=== PATIENT | female | born 1970 | race Caucasian/White ===

== ENCOUNTER 2018-07-20 06:29 | Day surgery (SDC) | payer BC ==
--- OUTSIDE RECORDS SUMMARY | 2018-07-20 06:33 | XMS REPORT ---
:1970 [facility] Address [address] [place] [address] Dr. Vann [address] [place] [id number] Care Team Providers Name Role Phone Unavailable Unavailable Unavailable Problems This patient has no known problems. Allergies, Adverse Reactions, Alerts This patient has no known allergies or adverse reactions. Medications This patient has no known medications.
[2018-07-20] MEDS ORDERED: Ringers Lactate 1,000 ML IV ONE (06:47)
[2018-07-20] MEDS ORDERED: LIDOCAINE 1% MPF 5 ML VIAL ONE (06:51)
[2018-07-20 07:05] LABS: Specific Gravity 1.015 (1.005-1.030)
[2018-07-20] MEDS ORDERED: FENTANYL CITR 100 MCG/2 ML ONE (07:18)
[2018-07-20] MEDS ORDERED: PROPOFOL 200 MG/20 ML VIAL IV ONE (07:18)
[2018-07-20] MEDS ORDERED: LIDOCAINE 2% MPF 5 ML VIAL ONE (07:19)
[2018-07-20] MEDS ORDERED: MIDAZOLAM HCL 2 MG/2 ML INJ ONE (07:19)
[2018-07-20] MEDS ORDERED: ONDANSETRON 4 MG/2 ML VIAL ONE ×2 (07:20→09:18)
[2018-07-20] MEDS ORDERED: LIDOCAINE 1.5% W/EPI AMP 5 ML ONE (07:22)
[2018-07-20] MEDS ORDERED: NA CHLORIDE 0.9% 1,000 ML ONE (07:23)
[2018-07-20] MEDS ORDERED: EPHEDRINE SULF 50 MG/ML VIAL ONE (08:22)
[2018-07-20] MEDS ORDERED: IBUPROFEN 200 MG TAB PO PRN (08:30)
--- NOTE | 2018-07-20 08:36 | P.BOP ---
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
[2018-07-20] MEDS: MEPERIDINE HCL 25 MG/0.5 ML ONE ×2 (08:38→08:43)
[2018-07-20] MEDS ORDERED: PROMETHAZINE 25 MG/ML VIAL ONE (08:55)
[2018-07-20] MEDS ORDERED: MEPERIDINE HCL 25 MG/0.5 ML ONE (09:06)
[2018-07-20] MEDS ORDERED: IBUPROFEN 200 MG TAB PO ONE (10:01)
--- NOTE | 2018-07-20 20:24 | OP ---
Date of Procedure: 07/20/2018 Surgeon: Denise Ruiz MD Preoperative Diagnoses: 1.Menorrhagia. 2.Endometrial polyps. Postoperative Diagnoses: 1.Menorrhagia. 2.Endometrial polyps. Procedures Performed: 1.Hysteroscopy. 2.Polypectomy x2 using Symphion device. 3.Dilation and curettage. Anesthesia: General. Specimens: Polyps and endometrial curettings all in 1 specimen cup. Complications: No complications. Drains: No drains. Condition: Stable. Estimated Blood Loss: Minimal. Normal saline for distention. No fluid deficit loss. The mean arterial pressure was set at about a little over 70 and her resecting pressures were at 80 m mHg. Description Of Procedure: After informed consent was verified, the patient was taken back to the OR. She was placed in a supine fashion on the operating table. After general anesthesia was given, she was placed in a dorsal lithotomy position. Pelvic exam was performed. Uterus was found to be about 8 weeks size. She has a stage II anterior wall and apical prolapse . Prep x3 with Betadine was done. Anterior lip grasped with 2 Allis clamps. Diagnostic SlimLine hyste roscope used to enter the cervical canal into the uterine cavity. Polyps were found in the office we re noted both at each of the tubal ostia just inside of them and the thickened endometrium on the ant erior wall. The scope was pulled out. The resectoscope . The 0 degree scope was used to introduce after priming the device and we went down to perform the polypectomy and the anterior wall that was thickened was all curetted with the device. The specimens were sent for permanent pathology . EBL was minimal. All the instruments were removed. Further curetting was performed with a #2 cur ette. After all the instruments were removed instrument, needle, and sponge counts were done and wer e correct at the end of the case. The patient tolerated the procedure well. Every time the device w as turned on with the bipolar going through for resection, there was no arrhythmia that was noted on the patient's continuous electronic EKG monitoring. However, there were no further arrhythmias. The patient had normal sinus rhythm, not tachycardic and did well at the end of the procedure. She was recovered from anesthesia and taken to PACU in stable condition. EBL minimal. She will follow up wi th me in 1 week. GIRISH/ADAN Voice ID: [id number] Report ID: [id number]
== END 2018-07-20 10:20 | disposition home or self-care (01) ==
LOC: OR 06:29
PROVIDERS: ATTEND Obstetrics & Gynecology
PROC: 0UDB7ZX Extraction of Endometrium, Via Natural or Artificial Opening, Diagnostic (ICD-10-PCS; 2018-07-20)
PROC: 0UJD8ZZ Inspection of Uterus and Cervix, Via Natural or Artificial Opening Endoscopic (ICD-10-PCS; 2018-07-20)
PROC: 0UB97ZX Excision of Uterus, Via Natural or Artificial Opening, Diagnostic (ICD-10-PCS; principal; 2018-07-20 07:30)
DX: N92.0 Excessive and frequent menstruation with regular cycle (principal); N84.0 Polyp of corpus uteri; N85.02 Endometrial intraepithelial neoplasia [EIN]; N95.1 Menopausal and female climacteric states; E03.9 Hypothyroidism, unspecified; E78.00 Pure hypercholesterolemia, unspecified; E55.9 Vitamin D deficiency, unspecified
CPT/HCPCS: 81025; 88305; J2001; J2175; J2250; J2405; J2550; J2704; J3010; J7030

== ENCOUNTER 2018-08-25 08:46 | Day surgery (SDC) | payer BC ==
[2018-08-22 12:22] LABS: Urine Appearance CLEAR; Urine Bilirubin NEGATIVE (NEG); Urine Blood NEGATIVE (NEG); Urine Color YELLOW; Urine Glucose NEGATIVE (NEG); Urine Protein NEGATIVE (NEG); Urine Urobilinogen 0.2 mg/dL (0.2-1.0); Urine pH 5.5 (5.0-7.0)
[2018-08-22 12:25] LABS: Urine Microscopic Reflex ORDER UMIC
[2018-08-22 12:27] LABS: Absolute Monocytes 0.5 K/uL (0.1-1.3); Absolute Neutrophil 4.1 K/uL (1.8-8.0); Basophils % 0.7 % (0-1.3); Eosinophils % 6.2 % (0-4.4); Hematocrit 45.2 % (36.0-45.0); Lymphocytes % 27.9 % (15.3-44.8); RBC Red Blood Cell Count 4.86 M/uL (3.86-4.86)
[2018-08-22 12:39] LABS: Urine Bacteria NONE SEEN /HPF (<20); Urine Culture Reflex Order REFLEXED; Urine RBC <5 /HPF (NONE SEEN)
--- NOTE | 2018-08-22 15:17 | EKG ---
Test Date: 2018-08-22 Test Time: 10:16:02 Harp Repairer: MAGDALENO MEASUREMENT RESULTS: Intervals: Rate: 53 NH: 142 QRSD: 90 QT: 452 QTc: 424 [place]: P: 35 NH: 142 QRS: -14 T: 26 INTERPRETIVE STATEMENTS: Sinus bradycardia Cannot rule out Anterior infarct, age undetermined Abnormal ECG No previous ECG available for comparison Electronically Signed On 08-22-18 15:15:04 CDT by Darrell Ochoa
[~2018-08-25 08:46] MED LIST: CEFAZOLIN 3 GM in NA CHLORIDE 0.9% 100 ML IM SCH
--- OUTSIDE RECORDS SUMMARY | 2018-08-25 08:49 | XMS REPORT ---
:1970 [facility] Address [address] [place] [address] Dr. Vann [address] [place] [id number] Care Team Providers Name Role Phone Unavailable Unavailable Unavailable Problems This patient has no known problems. Allergies, Adverse Reactions, Alerts This patient has no known allergies or adverse reactions. Medications This patient has no known medications.
--- OUTSIDE RECORDS SUMMARY | 2018-08-25 08:59 | XMS REPORT ---
:1970 Author Organization [facility] Address [address] [place] [address] Dr. [address] [place] [id number] Care Team Providers Name Role Phone Unavailable Unavailable Unavailable Problems This patient has no known problems. Allergies, Adverse Reactions, Alerts This patient has no known allergies or adverse reactions. Medications This patient has no known medications.
[2018-08-25 09:14] LABS: Specific Gravity 1.015 (1.005-1.030)
[2018-08-25] MEDS ORDERED: CEFAZOLIN/SWI 1gm 0 GM/0 ML SYR ONE (09:15)
[2018-08-25] MEDS ORDERED: Ringers Lactate 1,000 ML IV ONE ×3 (09:15→15:14)
[2018-08-25] MEDS: CEFAZOLIN/SWI 2gm 0 GM/0 ML SYR ONE ×2 (10:16→11:09)
[2018-08-25] MEDS ORDERED: SCOPOLAMINE HYDROBROMIDE PATCH TD ONE (10:16)
[2018-08-25] MEDS ORDERED: FENTANYL CITR 250 MCG/5 ML ONE (10:53)
[2018-08-25] MEDS ORDERED: PROPOFOL 200 MG/20 ML VIAL IV ONE (10:53)
[2018-08-25] MEDS ORDERED: ROCURONIUM 50 MG/5 ML VIAL IV ONE ×2 (10:53→13:08)
[2018-08-25] MEDS ORDERED: LIDOCAINE 2% MPF 5 ML VIAL ONE ×2 (10:53→13:52)
[2018-08-25] MEDS ORDERED: GLYCOPYRROLATE 0.2 MG/ML SYR ONE (10:53)
[2018-08-25] MEDS ORDERED: MIDAZOLAM HCL 2 MG/2 ML INJ ONE (10:53)
[2018-08-25] MEDS ORDERED: ONDANSETRON 4 MG/2 ML VIAL ONE (10:54)
[2018-08-25] MEDS ORDERED: NEOSTIGMINE 1 MG/ML -10 ML VIAL ONE (10:54)
[2018-08-25] MEDS ORDERED: NA CHLORIDE 0.9% 1,000 ML ONE (11:09)
[2018-08-25] MEDS: Ringers Lactate 1,000 ML IV ONE ×2 (12:28→12:29)
[2018-08-25] MEDS ORDERED: FENTANYL CITR 100 MCG/2 ML ONE (13:10)
[2018-08-25] MEDS ORDERED: KETOROLAC 30 MG/ML INJ ONE (13:38)
[2018-08-25] MEDS: HYDROMORPHONE HCL 2 MG/ML inj ONE ×4 (14:15→14:44)
[2018-08-25] MEDS ORDERED: HYDROCODONE/APAP 5/325 MG TAB ONE ×2 (15:35→18:00)
[2018-08-25] MEDS ORDERED: PROMETHAZINE 25 MG/ML VIAL ONE (16:24)
--- NOTE | 2018-08-26 00:13 | OP ---
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 2.Uterine prolapse. Procedures Performed: 1.Total laparoscopic hysterectomy, bilateral salpingo-oophorectomy, pelvic washings. 2.Uterosacral ligament suspension, colpopexy, and cystoscopy. Anesthesia: General endotracheal. Estimated Blood Loss: Minimal. Specimens: Uterus, bilateral tubes and ovaries, and pelvic washings. Complications: No complications. Drains: No drains. Condition: Stable. Indications: The patient is a 48-year-old, presented to the office for a regular routine wellness ex am, found to have irregular periods which were infrequent and abnormal. On further evaluation, trans vaginal ultrasound was done. Endometrial lining appeared to be thickened excessively. On sampling, she was found to have atypia with endometrial hyperplasia. So, she was offered treatment with medica l options including oral progesterone high-dose or Mirena, then surgical options hysterectomy. Since the patient was premenopausal, she wanted to proceed with hysterectomy and so she was consented and brought to the OR. Description Of Procedure: After informed consent was verified, she was given 3 g of Ancef. Brought to the OR, placed in a supine fashion on the table. After general anesthesia was given, she was plac ed in a dorsal lithotomy position using Chavez stirrups. Arms were tucked by the side and, after prop er positioning was ensured, SCDs were started. Time-out done. Abdomen, vulva, vagina, and perineum were prepped and draped in a sterile fashion. Mayorga was placed to drain the bladder and attached to cysto tubing for retrograde filling. A large VCare was introduced into the uterus and fixed in place . This area was then draped. A 1 cm infraumbilical incision was made with a scalpel. The fascia wa s incised and tagged. Peritoneum was entered without any problems. S retractor was placed. Cristina introduced. Site of entry was checked and was unremarkable. Upper abdominal surface was unremarkabl e also. Gallbladder absent. Peritoneal surfaces and omental surfaces were unremarkable. The patien t is placed in Trendelenburg position. A 5 mm left lower quadrant and 10 mm suprapubic ports were pl aced under direct vision. The small bowel was tucked into the upper abdomen. The large bowel was re tracted superiorly with the help of a 3-0 Monocryl stitch, placed onto epiploica of the sigmoid and t hen pulled up through the left upper quadrant incision using the Pancho-Miguel Ángel needle. This was fo r retraction. The vaginal pelvic survey was done. Pelvic washings were performed. No abnormalities were found. S mall tiny uterine fibroid was found on the serosal surface towards the left. Both tubes appeared to have proximal hydrosalpinges. Ureters without any anatomical distortion and the same is bladder. Ut erine prolapse likely present. After LigaSure was opened up, the left mesosalpinx was taken down proximally. Then, utero-ovarian li gament and round ligament were all taken down. The anterior leaves of the broad ligament were dissec parvez all the way to the level of the right round ligament. Then, the loose connective tissue over the precervical fascia was all cleared up. Bladder retracted inferiorly. Posterior peritoneum on the l eft side taken down to the left uterosacral and the broad ligament was skeletonized along with the ve ssels from the opposite side. Further dissection was performed and, once both vessels were well visu alized, then the LigaSure was used to take down and bipolar basket tip were used to take down the ves sels first. Then, the cardinal ligaments were taken down circumferentially. Colpotomy was performed with a monopolar hook blade, and the specimen detached and pulled out through the vagina. The tube and ovary on the left side were dissected and removed free, and on the left side the tube and ovary w ere removed separately and pulled out all through. All specimens were pulled out through the suprapu bic trocar. Thorough irrigation and suction were performed. Simple 0 Vicryl sutures placed at both angles and three [id number] in the middle to close. There was the uterosacral detachment compl etely from the apex and so this was reattached and suspension with the help of 0 PDS starting at the distal uterosacral about the last 4 cm, and a continuous running suture was passed through the uteros acral ligament, posterior fascia, rectovaginal septum, and then anterior precervical fascia, and a st itch tied one on each side. There was no anatomical distortion of the ureter on both sides. Cystosc opy was performed with a 17-Urdu sheath, 30-degree lens, normal saline. Both ureteric orifices wer e well visualized. The left side had a strong jet of urine, however this was like a continuous flow. No evidence of any blood or obstruction. The entire bladder was well visualized and unremarkable, without any foreign bodies. Bladder was drained. Vaginal bulb was removed. Vagina was cleaned up. Umbilical and fascial incisions were closed with the help of 0 Vicryl in a [id number] fashion. Subcutaneous sutures placed to bring it together and simple 0 Vicryl stitch on the fascia at the supr apubic site as well. All incisions were closed with the help of interrupted 4-0 Vicryl. Instrument, needle, and sponge counts x3 were correct at the end of the case. The patient tolerated the procedu re well. She will follow up with me in 10 days. GIRISH/ADAN Voice ID: [id number] Report ID: [id number]
== END 2018-08-25 18:15 | disposition home or self-care (01) ==
LOC: OR 08:46
PROVIDERS: ATTEND Obstetrics & Gynecology
PROC: 0UT24ZZ Resection of Bilateral Ovaries, Percutaneous Endoscopic Approach (ICD-10-PCS; 2018-08-25)
PROC: 0UT74ZZ Resection of Bilateral Fallopian Tubes, Percutaneous Endoscopic Approach (ICD-10-PCS; 2018-08-25)
PROC: 0USG4ZZ Reposition Vagina, Percutaneous Endoscopic Approach (ICD-10-PCS; 2018-08-25)
PROC: 0UT94ZZ Resection of Uterus, Percutaneous Endoscopic Approach (ICD-10-PCS; principal; 2018-08-25 10:30)
DX: N81.4 Uterovaginal prolapse, unspecified (principal); N80.0 Endometriosis of uterus; N88.8 Other specified noninflammatory disorders of cervix uteri; N94.89 Other specified conditions associated with female genital organs and menstrual cycle; N70.11 Chronic salpingitis; N95.1 Menopausal and female climacteric states; E03.9 Hypothyroidism, unspecified; E78.00 Pure hypercholesterolemia, unspecified; Z79.899 Other long term (current) drug therapy
CPT/HCPCS: 36415; 81003; 81015; 81025; 85025; 86850; 86900; 86901; 87086; 87088; 88108; 88305; 88307; 88309; 93005; J0690; J1170; J2250; J2405; J2550; J2704; J2710; J3010; J7030

== ENCOUNTER 2018-09-24 12:08 | Emergency (ER) | payer BC ==
--- OUTSIDE RECORDS SUMMARY | 2018-09-24 12:10 | XMS REPORT ---
:1970 [facility] Address [address] [place] [address] Dr. Vann [address] [place] [id number] Care Team Providers Name Role Phone Unavailable Unavailable Unavailable Problems This patient has no known problems. Allergies, Adverse Reactions, Alerts This patient has no known allergies or adverse reactions. Medications This patient has no known medications.
[2018-09-24 12:47] LABS: Absolute Lymphocytes (CBC) 2.7 K/uL (0.7-4.9); Absolute Monocytes 0.7 K/uL (0.1-1.3); Absolute Neutrophil 6.7 K/uL (1.8-8.0); Basophils % 0.9 % (0-1.3); Eosinophils % 7.9 % (0-4.4); Hematocrit 43.6 % (36.0-45.0); Lymphocytes % 24.6 % (15.3-44.8); MPV 9.3 fL (7.6-11.3); Monocytes % 6.5 % (3.3-12.3); RBC Red Blood Cell Count 4.71 M/uL (3.86-4.86)
[2018-09-24] MEDS ORDERED: ONDANSETRON 4 MG/2 ML VIAL ONE (12:52)
[2018-09-24] MEDS ORDERED: KETOROLAC 30 MG/ML INJ ONE (12:52)
[2018-09-24 13:08] LABS: ALT/SGPT 42 U/L (12-78); AST/SGOT 20 U/L (15-37); Albumin 3.9 g/dL (3.4-5.0); Alkaline Phosphatase 131 U/L (45-117); BUN Blood Urea Nitrogen 13 mg/dL (7-18); Bicarbonate 29 mmol/L (21-32); Bilirubin Direct < 0.1 mg/dL (0-0.2); Bilirubin Total 0.3 mg/dL (0.2-1.0); Glucose Level 92 mg/dL (74-106); Lipase 129 U/L (73-393); Protein, Total 8.8 g/dL (6.4-8.2); Sodium Level 140 mmol/L (136-145)
--- NOTE | 2018-09-24 13:36 | RAD REPORT ---
EXAM DESCRIPTION: CT - Abdomen Pelvis W Contrast - 09/24/2018 1:06 pm CLINICAL HISTORY: Abdominal pain COMPARISON: none. TECHNIQUE: Computed axial tomography of the abdomen pelvis was obtained. 100 cc Isovue-300 was admin istered intravenously. Oral contrast was not requested which limits evaluation of bowel. All CT scans are performed using dose optimization technique as appropriate and may include automated exposure control or mA/KV adjustment according to patient size. FINDINGS: The liver, spleen, pancreas, adrenal and kidneys appear unremarkable. There is no evidence of diverticulitis. The appendix is normal. Cholecystectomy A hysterectomy has been performed. A fluid collection is not noted. IMPRESSION: No acute abnormality is displayed.
[2018-09-24 14:46] LABS: Urine Bacteria 20-50 /HPF (<20)
[2018-09-24 14:47] LABS: Urine Culture Reflex Order REFLEXED
[2018-09-24 14:47] LABS: Urine Blood 2+ (NEG); Urine Glucose NEGATIVE (NEG); Urine Protein NEGATIVE (NEG); Urine Specific Gravity 1.015 (1.005-1.030)
--- NOTE | 2018-09-24 15:01 | EDPHYS ---
Physician Documentation [facility] [place], [place] Name: Adrianna Blount Age: 48 yrs Sex: Female : 1970 Arrival Date: 09/24/2018 Time: 12:10 Bed 8 Private MD: None, None ED Physician Daniel Arnold HPI: 09/24 12:16 This 48 yrs old Female presents to ER via Ambulatory with complaints of ps1 Urinary Problem bilateral flank pain. 12:16 pt sent in by Dr. Ruiz for evaluation of bilateral flank pain. Pain seen by [employer] at ps1 clinic for frequency and dysuria. Started on ABX. No culture specific organizm. S/p Hysterectomy 4 weeks ago. Pain localized to lower back for a week and intermittent but persistent since being seen and evaluated. Pain described as dull and rated as moderate. . 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 - Social history:: Smoking status: Patient/guardian denies using tobacco. - Ebola Screening: : No symptoms or risks identified at this time. ROS: 12:16 Constitutional: Negative for fever, chills, and weight loss, Eyes: Negative for injury, ps1 pain, redness, and discharge, Cardiovascular: Negative for chest pain, palpitations, and edema, Respiratory: Negative for shortness of breath, cough, wheezing, and pleuritic chest pain, MS/Extremity: Negative for injury and deformity, Skin: Negative for injury, rash, and discoloration, Neuro: Negative for headache, weakness, numbness, tingling, and seizure. 12:16 Abdomen/GI: Positive for abdominal pain. 12:16 : Positive for urinary symptoms, flank pain, urinary frequency. Exam: 12:16 Constitutional: This is a well developed, well nourished patient who is awake, alert, ps1 and in no acute distress. Head/Face: Normocephalic, atraumatic. Eyes: Pupils equal round and reactive to light, extra-ocular motions intact. Lids and lashes normal. Conjunctiva and sclera are non-icteric and not injected. Chest/axilla: Normal chest wall appearance and motion. Nontender with no deformity. No lesions are appreciated. Cardiovascular: Regular rate and rhythm. No gallops, murmurs, or rubs. Normal PMI, no JVD. No pulse deficits. Respiratory: Lungs have equal breath sounds bilaterally, clear to auscultation and percussion. No rales, rhonchi or wheezes noted. No increased work of breathing, no retractions or nasal flaring. Abdomen/GI: Soft, non-tender, with normal bowel sounds. No distension or tympany. No guarding or rebound. No evidence of tenderness throughout. MS/ Extremity: Pulses equal, no cyanosis. Neurovascular intact. Full, normal range of motion. Neuro: Awake and alert, GCS 15, oriented to person, place, time, and situation. Cranial nerves II-XII grossly intact. Sensory grossly intact. Psych: Awake, alert, with orientation to person, place and time. Behavior, mood, and affect are within normal limits. Vital Signs: 12:14 BP 123 / 79; Pulse 73; Resp 16; Temp 98.4; Pulse Ox 98% on R/A; Weight 92.99 kg; Height la1 5 ft. 4 in. (162.56 cm); Pain 3/10; 13:19 BP 115 / 68; Pulse 56; Resp 16; Pulse Ox 97% ; bp 15:20 BP 121 / 71; Pulse 62; Resp 14; Pulse Ox 98% ; bp 12:14 Body Mass Index 35.19 (92.99 kg, 162.56 cm) la1 MDM: 13:16 Patient medically screened. ps1 09/24 12:13 Order name: CBC with Diff; Complete Time: 13:16 ps1 09/24 12:13 Order name: Hepatic Function; Complete Time: 13:16 ps1 09/24 12:13 Order name: Lipase; Complete Time: 13:16 ps1 09/24 12:13 Order name: CMP; Complete Time: 13:16 ps1 09/24 12:30 Order name: Urine Dipstick--Ancillary (enter results); Complete Time: 14:49 eb 09/24 14:01 Order name: Urine Microscopic Only ss 09/24 12:13 Order name: IV Saline Lock; Complete Time: 12:36 ps1 09/24 12:13 Order name: Labs collected and sent; Complete Time: 12:36 [facility] 09/24 12:13 Order name: CT Abd/Pelvis - W/Contrast; Complete Time: 13:44 ps1 09/24 14:01 Order name: Urine Microscopic Only; Complete Time: 14:49 EDMS 09/24 14:48 Order name: Urine Culture EDMS Administered Medications: 12:45 Drug: Zofran 4 mg Route: IVP; Site: right forearm; aa5 15:05 Follow up: Response: No adverse reaction bp 12:45 Drug: TORadol 30 mg Route: IVP; Site: right forearm; aa5 15:04 Follow up: Response: No adverse reaction bp 15:04 Drug: Rocephin - (cefTRIAXone) 1 grams Route: IVPB; Infused Over: 30 mins; Site: right bp forearm; 15:05 Follow up: IV Status: Completed infusion bp Disposition: 09/24/18 15:00 Discharged to Home. Impression: Bilateral Flank pain, Acute cystitis with hematuria. - Condition is Stable. - Discharge Instructions: Urinary Tract Infection, Adult. - Prescriptions for Levaquin 750 mg Oral Tablet - take 1 tablet by ORAL route once daily for 7 days; 7 tablet. Anaprox DS 550 mg Oral Tablet - take 1 tablet by ORAL route every 12 hours As needed; 20 tablet. Robaxin 500 mg Oral Tablet - take 2 tablet by ORAL route every 6 hours As needed; 40 tablet. - Medication Reconciliation Form, Thank You Letter, Antibiotic Education, Prescription Opioid Use form. - Follow up: Denise Ruiz MD; When: 1 week; Reason: Re-evaluation by your physician. Follow up: Emergency Department; When: As needed; Reason: Fever > 102 F, Worsening of condition. - Problem is an ongoing problem. - Symptoms are unchanged. Signatures: Dispatcher [employer] EDFL Bri Bajwa RN RN aa5 Pratik Wright RN RN la1 Ronald Guerrier RN RN Daniel Story MD MD ps1 Corrections: (The following items were deleted from the chart) 15:22 15:00 09/24/2018 15:00 Discharged to Home. Impression: Bilateral Flank pain; Acute bp cystitis with hematuria. Condition is Stable. Forms are Medication Reconciliation Form, Thank You Letter, Antibiotic Education, Prescription Opioid Use. Follow up: Denise Ruiz; When: 1 week; Reason: Re-evaluation by your physician. Follow up: Emergency Department; When: As needed; Reason: Fever > 102 F, Worsening of condition. Problem is an ongoing problem. Symptoms are unchanged. ps1
--- NOTE | 2018-09-24 15:01 | ER ---
Nurse's Notes [facility] Name: Adrianna Blount Age: 48 yrs Sex: Female : 1970 Arrival Date: 09/24/2018 Time: 12:10 Bed 8 Private MD: None, None Diagnosis: Bilateral Flank pain;Acute cystitis with hematuria Presentation: 09/24 12:12 Presenting complaint: Patient states: Urinary, frequency, and lower back pain for about la1 a week. Transition of care: patient was not received from another setting of care. Onset of symptoms was September 24, 2018. Risk Assessment: Do you want to hurt yourself or someone else? Patient reports no desire to harm self or others. Initial Sepsis Screen: Does the patient meet any 2 criteria? No. Patient's initial sepsis screen is negative. Does the patient have a suspected source of infection? No. Patient's initial sepsis screen is negative. Care prior to arrival: None. 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 - Social history:: Smoking status: Patient/guardian denies using tobacco. - Ebola Screening: : No symptoms or risks identified at this time. Screenin:53 Abuse screen: Denies threats or abuse. Nutritional screening: No deficits noted. aa5 Tuberculosis screening: No symptoms or risk factors identified. Fall Risk None identified. Assessment: 12:20 General: Appears comfortable, Behavior is calm, cooperative. Pain: Complains of pain in aa5 lumbar area, left low back and right low back Pain does not radiate. Pain currently is 3 out of 10 on a pain scale. Quality of pain is described as aching, Pain began 2-3 days ago. Is continuous. Neuro: Level of Consciousness is awake, alert, obeys commands, Oriented to person, place, time, situation. Cardiovascular: Heart tones S1 S2 present Rhythm is regular. Respiratory: Airway is patent Respiratory effort is even, unlabored, Respiratory pattern is regular, symmetrical. GI: Abdomen is round non-distended, Bowel sounds present X 4 quads. Abd is soft and non tender X 4 quads. Patient currently denies nausea, vomiting. : Reports urgency, urinary frequency. EENT: No signs and/or symptoms were reported regarding the EENT system. Derm: Skin is pink, warm \T\ dry. Musculoskeletal: Range of motion: intact in all extremities. 12:53 Reassessment: Pt to CT . aa5 13:20 Reassessment: PT RETURNED FROM CT, RESULTS PENDING. bp 15:19 Reassessment: PT D/C HOME AMBULATORY WITH FAMILY, DX WITH ACUTE CYSTITIS. bp Vital Signs: 12:14 BP 123 / 79; Pulse 73; Resp 16; Temp 98.4; Pulse Ox 98% on R/A; Weight 92.99 kg; Height la1 5 ft. 4 in. (162.56 cm); Pain 3/10; 13:19 BP 115 / 68; Pulse 56; Resp 16; Pulse Ox 97% ; bp 15:20 BP 121 / 71; Pulse 62; Resp 14; Pulse Ox 98% ; bp 12:14 Body Mass Index 35.19 (92.99 kg, 162.56 cm) la1 ED Course: 12:10 Patient arrived in ED. mr 12:11 None, None is Private Physician. mr 12:11 Daniel Arnold MD is Attending Physician. ps1 12:13 Triage completed. la1 12:14 Arm band placed on right wrist. la1 12:20 Patient has correct armband on for positive identification. Placed in gown. Bed in low aa5 position. Call light in reach. Side rails up X2. 12:30 Initial lab(s) drawn, by me, sent to lab. Inserted saline lock: 22 gauge in right aa5 forearm, using aseptic technique. Blood collected. 12:36 Bri Bajwa, HONG is Primary Nurse. aa5 12:55 No provider procedures requiring assistance completed. aa5 13:[address] vm2 13:06 CT completed. Patient tolerated procedure well. Patient moved back from CT. vm2 13:06 CT Abd/Pelvis - W/Contrast In Process Unspecified. EDMS 14:06 Urine Microscopic Only Sent. jb1 15:00 Denise Ruiz MD is Referral Physician. ps1 15:20 IV discontinued, intact, bleeding controlled, No redness/swelling at site. Pressure bp dressing applied. Administered Medications: 12:45 Drug: Zofran 4 mg Route: IVP; Site: right forearm; aa5 15:05 Follow up: Response: No adverse reaction bp 12:45 Drug: TORadol 30 mg Route: IVP; Site: right forearm; aa5 15:04 Follow up: Response: No adverse reaction bp 15:04 Drug: Rocephin - (cefTRIAXone) 1 grams Route: IVPB; Infused Over: 30 mins; Site: right bp forearm; 15:05 Follow up: IV Status: Completed infusion bp Outcome: 15:00 Discharge ordered by . ps1 15:20 Discharged to home ambulatory, with family. bp 15:20 Condition: stable 15:20 Discharge instructions given to patient, Instructed on discharge instructions, follow up and referral plans. medication usage, Demonstrated understanding of instructions, follow-up care, medications, Prescriptions given X 3. 15:22 Patient left the ED. bp Signatures: Dispatcher [employer] EDMS Sebastien Hardin jbBlanca Kovacs mr Garett, Bri, RN RN aa5 Pratik Wright RN RN Heidi Perez 2 Ronald Guerrier RN RN bp Singer, Phillip, MD MD ps1
[2018-09-24] MEDS ORDERED: CEFTRIAXONE/SWI 1gm 1 GM/10 ML SYR ONE (15:06)
== END 2018-09-24 15:22 | disposition home or self-care (01) ==
LOC: ER 12:08
DX: N30.01 Acute cystitis with hematuria (principal); E03.9 Hypothyroidism, unspecified; E78.00 Pure hypercholesterolemia, unspecified
CPT/HCPCS: 36415; 74177; 80053; 80076; 81003; 81015; 83690; 85025; 87086; 87088; 96374; 96375; 99284; J0696; J2405; Q9967